=== PATIENT | female | born 1990 | race African-American/Black ===

== ENCOUNTER 2016-05-04 19:07 | Emergency (ER) | payer OTHER ==
[~2016-05-04] VITALS: Ht 170.2 cm; Wt 104.3 kg
[2016-05-04 19:08] VITALS: BP 130/83
[2016-05-04] MEDS ORDERED: PROVENTIL HFA6.7 G1 INH (19:26)
[2016-05-04] MEDS ORDERED: PREDNISONE 20 M20 MG PO (19:26)
== END 2016-05-04 19:51 | disposition home or self-care (01) ==
LOC: ER 19:07
DX: J06.9 Acute upper respiratory infection, unspecified (principal); J40 Bronchitis, not specified as acute or chronic; R05 Cough; M79.1 Myalgia; F17.210 Nicotine dependence, cigarettes, uncomplicated